=== PATIENT | female | born 1995 | race Caucasian/White ===

== ENCOUNTER 2016-08-13 20:25 | Emergency (ER) ==
[2016-08-13 20:32] VITALS: BP 131/79; TEMP 102.7; BMI 48.2
[2016-08-13] MEDS ORDERED: DUONEB NEB STA (21:00)
--- NOTE | 2016-08-13 21:03 | ED.PDOC ---
General ED Provider: Dr. TC ROACH Chief Complaint: Cough Stated Complaint: Patient states that over the past two days she has had cough conjestion with fever. Cough is productive of thick sputum. Admits to smoking 1/ 2 ppd for 10 years. Time Seen by Physician: 21:01 Mode of Arrival: Walk-In Information Source: Patient, Family Exam Limitations: No limitations Nursing and Triage Documentation Reviewed and Agree: Yes Review of Systems - Review Of Systems Constitutional: Reports: Chills, Fever, Malaise, Weakness, Loss of appetite Eyes: Reports: No symptoms Ears, Nose, Mouth, Throat: Reports: No symptoms Respiratory: Reports: Cough, Short of air Cardiac: Reports: No symptoms GI: Reports: No symptoms : Reports: No symptoms Musculoskeletal: Reports: No symptoms Skin: Reports: No symptoms Neurological: Reports: No symptoms Endocrine: Reports: No symptoms Hematologic/Lymphatic: Reports: No symptoms All Other Systems: Reviewed and Negative Past Medical History - Past Medical History Previously Healthy: Yes Endocrine: Reports: None Cardiovascular: Reports: None Respiratory: Reports: Asthma Hematological: Reports: None Gastrointestinal: Reports: GERD Genitourinary: Reports: None Neuro/Psych: Reports: Anxiety, Depression Musculoskeletal: Reports: None Cancer: Reports: None Last Menstrual Period: NOV. - Surgical History General Surgical History: Reports: Tonsillectomy - Family History Family History: Reports: Unknown - Social History Smoking Status: Current every day smoker, Heavy tobacco smoker Hx Substance Use: No Alcohol Screening: Occasionally - Immunizations Tetanus Shot up to Date: Yes Physical Exam - Physical Exam Appearance: Ill-appearing, Obese Ill-appearing: Moderate Pain Distress: Mild Eyes: YAYO, EOMI, Conjunctiva clear Neck: Supple Respiratory: Wheezes Cardiovascular: Tachycardia Musculoskeletal: Normal strength, ROM intact, No edema, No calf tenderness Skin: Warm Neurological: Sensation intact, Motor intact, Reflexes intact, Cranial nerves intact, Alert, Oriented Psychiatric: Anxious Interpretation - Radiology Interpretation Radiology Interpretation By: ED Physician Radiology Results: Negative Exam Interpreted: CXR Critical Care Note - Critical Care Note Total Time (mins): 0 Course - Course Orders, Labs, Meds: Lab Review 08/13/16 20:55 Influenza A (Rapid) Positive H Influenza B (Rapid) Negative Orders Category Date Time Status NEBULIZER TREATMENT Stat CARDIO 08/13/16 21:00 Completed FLU A & B RAPID TEST [RAPID FLU A/B] Stat LAB 08/13/16 20:55 Completed MOLECULAR GROUP A STREP Stat LAB 08/13/16 20:55 Results STREP SCREEN Stat LAB 08/13/16 20:55 Results Acetaminophen [Tylenol] MEDS 08/13/16 21:11 Discontinued 1,000 mg PO ONCE STA Ipratropium/Albuterol Neb [Duoneb] MEDS 08/13/16 21:00 Discontinued 1 vial NEB ONCE STA Oseltamivir Phosphate [Tamiflu] MEDS 08/13/16 21:30 Ordered 75 mg PO ONCE CHEST, 2 VIEWS PA & LAT Stat RADS 08/13/16 20:59 Taken Medications Generic Name Dose Route Start Last Admin Trade Name Freq PRN Reason Stop Dose Admin Oseltamivir Phosphate 75 mg 08/13/16 21:30 08/13/16 21:46 Tamiflu PO 75 mg ONCE KAMILLE Administration Discontinued Medications Generic Name Dose Route Start Last Admin Trade Name Freq PRN Reason Stop Dose Admin Acetaminophen 1,000 mg 08/13/16 21:11 08/13/16 21:19 Tylenol PO 08/13/16 21:12 1,000 mg ONCE STA Administration Albuterol/Ipratropium 1 vial 08/13/16 21:00 08/13/16 21:13 Duoneb NEB 08/13/16 21:01 1 vial ONCE STA Administration Vital Signs: Temp Pulse Resp BP Pulse Ox 08/13/16 20:27 102.7 F H 112 H 20 131/79 92 L Departure - Departure Time of Disposition: 21:50 Disposition: HOME SELF-CARE Discharge Problem: Influenza A Instructions: Influenza (ED) Condition: Fair Pt referred to PMD for follow-up: Yes Additional Instructions: Alternate Tylenol with Motrin as needed for fever Take Tamiflu for 5 days Push fluids Prescriptions: Oseltamivir Phosphate [Tamiflu] 75 mg PO BID #10 capsule Allergies/Adverse Reactions: Allergies sulfamethoxazole [From Bactrim] Adverse Reaction (Verified 08/13/16 20:36) Nausea trimethoprim [From Bactrim] Adverse Reaction (Verified 08/13/16 20:36) Nausea Home Medications: Ambulatory Orders Oseltamivir Phosphate [Tamiflu] 75 mg PO BID #10 capsule 08/13/16 Disposition Discussed With: Patient, Family
[2016-08-13] MEDS ORDERED: TYLENOL PO STA (21:11)
[2016-08-13 21:14] LABS: FLU INTERNAL QC INTERNAL QC VALID; RAPID FLU A POSITIVE (NEGATIVE); RAPID FLU B NEGATIVE (NEGATIVE)
[2016-08-13] MEDS ORDERED: TAMIFLU PO SCH (21:30)
[2016-08-13] MEDS ORDERED: TAMIFLU ONE (21:43)
--- NOTE | 2016-08-14 07:41 | DI ---
EXAM: Two views of the chest. History: Cough. Findings: Heart size is normal. No focal consolidation. No appreciable pleural fluid and no pneum othorax. No acute osseous abnormalities. Impression: No acute cardiopulmonary process.
== END 2016-08-13 22:00 | disposition home or self-care (01) ==
LOC: ED 20:25
DX: J09.X2 Influenza due to identified novel influenza A virus with other respiratory manifestations (principal); F17.210 Nicotine dependence, cigarettes, uncomplicated
CPT/HCPCS: 87651; 87804; 87880; 94640; 99283

== ENCOUNTER 2016-12-08 18:01 | Emergency (ER) ==
[2016-12-08 18:04] VITALS: BP 147/92; TEMP 98.5; BMI 51.6
--- NOTE | 2016-12-08 18:19 | ED.PDOC ---
General ED Provider: Dr. JEANCARLOS AVILA-ER Chief Complaint: Cough Stated Complaint: my sinuses are draining down into my chest Time Seen by Physician: 18:05 Mode of Arrival: Walk-In Information Source: Patient, Family Exam Limitations: No limitations Nursing and Triage Documentation Reviewed and Agree: Yes Respiratory Complaint Exam - Respiratory Complaint/Exam Onset/Duration: 2 days Symptoms Are: Still present Timing: Constant Initial Severity: Mild Current Severity: Moderate Location: Nose, Chest Character: Reports: Productive cough Aggravating: Reports: URI Alleviating: Reports: None Associated Signs and Symptoms: Reports: URI, Nasal congestion, Sinus discomfort. Denies: Rapid breathing, Dyspnea, Fever, Chills, Chest pain, Pleuritic chest pain, Wheezing, Hemoptysis, Dizziness, Calf pain, Calf swelling , Edema, Hoarseness, Vomiting, Sore throat, Weight loss, Decreased oral intake, Increased thirst, Increased appetite, Increased urination History of Healthcare-Acquired Pneumonia: No Pulmonary Embolism Risk Factors: Smoking Cardiac Risk Factors: Reports: Smoking Pseudomonas Risk Factors: Reports: None Tuberculosis Risk Factors: Reports: None, Smoking Home Oxygen Use: No Recent Stress Test: No Recent Echo/LV Function: No Current Antibiotic Use: No Current Asthma Medication Use: No Respiratory Distress: None Inadequate Respiratory Effort: No Dysphagia Present: No Stridor Present: No JVD Present: No Accessory Muscle Use: No Retractions: Not Present Diminished Breath Sounds: No Sinus Tenderness: None Grunting Respirations: No Kussmaul Respirations: No Differential Diagnoses: Asthma, Sinusitis, URI Review of Systems - Review Of Systems Constitutional: Reports: No symptoms Eyes: Reports: No symptoms Ears, Nose, Mouth, Throat: Reports: Nose discharge Respiratory: Reports: Cough Cardiac: Reports: No symptoms GI: Reports: No symptoms : Reports: No symptoms Musculoskeletal: Reports: No symptoms Skin: Reports: No symptoms Neurological: Reports: No symptoms Endocrine: Reports: No symptoms Hematologic/Lymphatic: Reports: No symptoms All Other Systems: Reviewed and Negative Past Medical History - Past Medical History Previously Healthy: Yes Endocrine: Reports: None Cardiovascular: Reports: None Respiratory: Reports: Asthma Hematological: Reports: None Gastrointestinal: Reports: GERD Genitourinary: Reports: None Neuro/Psych: Reports: Anxiety, Depression Musculoskeletal: Reports: None Cancer: Reports: None Last Menstrual Period: MAY (PCOS) - Surgical History General Surgical History: Reports: Tonsillectomy - Family History Family History: Reports: Unknown - Social History Smoking Status: Current every day smoker, Heavy tobacco smoker Hx Substance Use: Yes Alcohol Screening: None Lives: With family Physical Exam - Physical Exam Appearance: Well-appearing, No pain distress, Well-nourished Eyes: YAYO, EOMI, Conjunctiva clear ENT: Rhinorrhea Neck: Supple Respiratory: Rhonchi, Wheezes Cardiovascular: RRR GI/: Soft, Nontender, No masses, Bowel sounds normal, No Organomegaly Musculoskeletal: Normal strength, ROM intact, No edema, No calf tenderness Skin: Warm, Dry, Normal color Neurological: Sensation intact, Motor intact, Reflexes intact, Cranial nerves intact, Alert, Oriented Psychiatric: Affect appropriate, Mood appropriate Critical Care Note - Critical Care Note Total Time (mins): 0 Course - Course Orders, Labs, Meds: Orders Category Date Time Status URINE Stat LAB 12/08/16 18:14 Uncollected Vital Signs: Temp Pulse Resp BP Pulse Ox 12/08/16 18:01 98.5 F 107 H 20 147/92 H 95 Departure - Departure Time of Disposition: 18:19 Disposition: HOME SELF-CARE Discharge Problem: Sinusitis Qualifiers: Sinusitis location: unspecified location Chronicity: unspecified Qualifier Code : (J32.9) Chronic sinusitis, unspecified Asthmatic bronchitis Qualifiers: Asthma severity: mild intermittent Asthma complication type: uncomplicated Qualifier Code: (J45.20) Mild intermittent asthma, uncomplicated Instructions: Sinusitis (ED) Condition: Good Pt referred to PMD for follow-up: Yes Additional Instructions: biaxin 500mg bid x 10 days--prednisone 30mg x2 days then 20mg x 2 days then 10mg x 2 days---robitussin ac 2 tsps q 6hs prn cough 150cc--stop smoking- Allergies/Adverse Reactions: Allergies sulfamethoxazole [From Bactrim] Adverse Reaction (Verified 12/08/16 18:04) Nausea trimethoprim [From Bactrim] Adverse Reaction (Verified 12/08/16 18:04) Nausea Home Medications: Ambulatory Orders 1 [No Reported Medications] 12/08/16 Disposition Discussed With: Patient, Family
[2016-12-08 18:30] LABS: URINE PREGNANCY INTERNAL QC INTERNAL QC VALID
== END 2016-12-08 18:34 | disposition home or self-care (01) ==
LOC: ED 18:01
DX: J32.9 Chronic sinusitis, unspecified (principal); J45.20 Mild intermittent asthma, uncomplicated; F17.200 Nicotine dependence, unspecified, uncomplicated
CPT/HCPCS: 81025; 99283

== ENCOUNTER 2017-02-23 17:08 | Emergency (ER) ==
[2017-02-23 17:16] VITALS: BP 131/84; TEMP 98.8; BMI 52.2
[2017-02-23 18:24] LABS: BASOPHILS # (AUTO) 0.1 K/uL (0-0.2); BASOPHILS % (AUTO) 0.4 % (0.0-3.0); EOSINOPHILS # (AUTO) 0.2 K/ul (0.0-0.7); EOSINOPHILS % (AUTO) 1.6 % (0.0-7.0); HEMATOCRIT 39.7 % (37.0-47.0); HEMOGLOBIN 13.5 g/dl (12.0-16.0); IMMATURE GRANULOCYTE % (AUTO) 0.2 % (0.0-5.0); LYMPHOCYTES # (AUTO) 3.4 K/uL (0.60-3.4); LYMPHOCYTES % (AUTO) 26.2 (10.0-50.0); MEAN CORPUSCULAR HEMOGLOBIN 29.8 pg (27.0-31.0); MEAN CORPUSCULAR VOLUME 87.6 fl (81.0-99.0); MONOCYTES # (AUTO) 0.6 K/uL (0.4-2.0); MONOCYTES % (AUTO) 4.7 (0-10); NEUTROPHILS # (AUTO) 8.6 K/ul (2.0-6.9); NEUTROPHILS % (AUTO) 66.9; PLATELET COUNT 281 10^3/uL (140-440); RED BLOOD COUNT 4.53 10^6/ul (4.20-5.40); WHITE BLOOD COUNT 12.88 K/ul (4.6-10.2)
--- NOTE | 2017-02-23 18:36 | ED.PDOC ---
General ED Provider: Dr. DALY BARRAGAN Chief Complaint: Diarrhea Stated Complaint: DIARRHEA , GENERALIZED BODY ACHES ABDOMINAL PAIN Time Seen by Physician: 17:10 (seen with Zen ( blind lacer) at all times) Mode of Arrival: Walk-In Information Source: Patient, Family Exam Limitations: No limitations Nursing and Triage Documentation Reviewed and Agree: Yes GI Complaint Exam - Abdominal Pain Complaint/Exam Onset: Gradual Duration: 3 DAYS Symptoms Are: Still present Timing: Constant Initial Severity: Moderate Current Severity: Moderate Location of Pain: Diffuse Character: Reports: Aching Aggravating: Reports: None Alleviating: Reports: None Associated Signs and Symptoms: Denies: Diaphoresis, Fever, Cough, Chest pain, Dizziness, Back pain, Constipation, Blood in stool, Dysuria, Urinary frequency, Decreased urine output, Decreased appetite, Vaginal bleeding, Vaginal discharge , Nausea, Vomiting, Diarrhea, Sore throat, Decreased activity Related History: Reports: Similar episode AAA Risk Factors: Reports: None Cardiac Risk Factors: Reports: None Ectopic Risk Factors: Reports: None Ovarian Torsion Risk Factors: Reports: None Surgical Obstruction Risk Factors: Reports: None Related Surgical History: Reports: None Patient Rh Status: Unknown Abdominal Findings: Present: None Review of Systems - Review Of Systems Constitutional: Reports: No symptoms Eyes: Reports: No symptoms Ears, Nose, Mouth, Throat: Reports: No symptoms Respiratory: Reports: No symptoms Cardiac: Reports: No symptoms GI: Reports: Abdominal pain : Reports: No symptoms Musculoskeletal: Reports: No symptoms Skin: Reports: No symptoms Neurological: Reports: No symptoms Endocrine: Reports: No symptoms Hematologic/Lymphatic: Reports: No symptoms All Other Systems: Reviewed and Negative Past Medical History - Past Medical History Previously Healthy: Yes Endocrine: Reports: None Cardiovascular: Reports: None Respiratory: Reports: Asthma Hematological: Reports: None Gastrointestinal: Reports: GERD Genitourinary: Reports: None Neuro/Psych: Reports: Anxiety, Depression Musculoskeletal: Reports: None Cancer: Reports: None Last Menstrual Period: LAST MAY, 1916 - Surgical History General Surgical History: Reports: Tonsillectomy - Family History Family History: Reports: Unknown - Social History Smoking Status: Current every day smoker, Heavy tobacco smoker Hx Substance Use: No Alcohol Screening: None - Immunizations Tetanus Shot up to Date: Yes Physical Exam - Physical Exam Appearance: Well-appearing, No pain distress, Well-nourished Eyes: YAYO, EOMI, Conjunctiva clear ENT: Ears normal, Nose normal, Oropharynx normal Respiratory: Airway patent, Breath sounds clear, Breath sounds equal, Respirations nonlabored Cardiovascular: RRR, Pulses normal, No rub, No murmur GI/: Soft, Nontender, No masses, Bowel sounds normal, No Organomegaly Musculoskeletal: Normal strength, ROM intact, No edema, No calf tenderness Skin: Warm, Dry, Normal color Neurological: Sensation intact, Motor intact, Reflexes intact, Cranial nerves intact, Alert, Oriented Psychiatric: Affect appropriate, Mood appropriate Physician Notification - Case Discussed Physician Notified: MARLEY Time of Notification: 19:00 Critical Care Note - Critical Care Note Total Time (mins): 0 Course - Course Hematology/Chemistry: 02/23/17 18:20 02/23/17 18:20 Orders, Labs, Meds: Lab Review 02/23/17 18:20 WBC 12.88 H RBC 4.53 Hgb 13.5 Hct 39.7 MCV 87.6 MCH 29.8 MCHC 34.0 RDW Coeff of Yarelis 13.4 Plt Count 281 Immature Gran % (Auto) 0.2 Neut % (Auto) 66.9 Lymph % (Auto) 26.2 [place] % (Auto) 4.7 Eos % (Auto) 1.6 Baso % (Auto) 0.4 Immature Gran # (Auto) 0.0 Neut # 8.6 H Lymph # 3.4 [place] # 0.6 Eos # 0.2 Baso # 0.1 Sodium 141 Potassium 4.0 Chloride 106 Carbon Dioxide 26 Anion Gap 13.0 BUN 9 Creatinine 0.75 Estimated GFR (MDRD) 96.00 BUN/Creatinine Ratio 12.00 Glucose 94 Calcium 8.9 Total Bilirubin 0.40 AST 13 L ALT 19 Alkaline Phosphatase 118 H Total Protein 7.1 Albumin 3.6 Globulin 3.5 Albumin/Globulin Ratio 1.03 Serum , Qual Negative Orders Category Date Time Status CBC W/ AUTO DIFF Stat LAB 02/23/17 18:20 Completed COMPREHENSIVE METABOLIC PANEL Stat LAB 02/23/17 18:20 Completed EHRLICHIA DNA, PCR Stat LAB 02/23/17 18:20 Received LYME, WESTERN BLOT, SERUM Stat LAB 02/23/17 18:20 Received SERUM Stat LAB 02/23/17 18:20 Completed STREP SCREEN Stat LAB 02/23/17 18:40 Received URINALYSIS C & S IF INDICATED Stat LAB 02/23/17 18:40 Received CHEST, 2 VIEWS PA & LAT Stat RADS 02/23/17 18:[address] ABDOMEN/PELVIS WO CONTRAST Stat RADS 02/23/17 18:11 Ordered Vital Signs: Temp Pulse Resp BP Pulse Ox 02/23/17 17:08 98.8 F 99 H 20 131/84 94 L Departure - Departure Time of Disposition: 18:38 Disposition: HOME SELF-CARE Discharge Problem: Diarrhea Instructions: Abdominal Pain (ED), Abdominal Pain in Children (ED) Condition: Good Pt referred to PMD for follow-up: Yes Additional Instructions: Please call your Family Physician as soon as possible to schedule a follow-up appointment. Allergies/Adverse Reactions: Allergies sulfamethoxazole [From Bactrim] Adverse Reaction (Verified 12/08/16 18:04) Nausea trimethoprim [From Bactrim] Adverse Reaction (Verified 12/08/16 18:04) Nausea Home Medications: Ambulatory Orders 1 [No Reported Medications] 12/08/16
[2017-02-23 18:42] LABS: SERUM PREGNANCY INTERNAL QC INTERNAL QC VALID
[2017-02-23 18:43] LABS: ALBUMIN 3.6 g/dL (3.4-5.0); ALBUMIN/GLOBULIN RATIO 1.03; BILIRUBIN,TOTAL 0.4 mg/dL (0.00-1.20); CALCIUM 8.9 mg/dL (8.2-10.2); CREATININE 0.75 mg/dL (0.60-1.30); TOTAL PROTEIN 7.1 g/dL (6.4-8.2)
[2017-02-23 18:55] LABS: BILIRUBIN,URINE Negative (NEGATIVE); KETONES,URINE Negative (NEGATIVE); LEUKOCYTE ESTERASE ,URINE Negative (NEGATIVE); NITRITE,URINE Negative (NEGATIVE); PH,URINE 6.5 (5-9); PROTEIN,URINE Negative (NEGATIVE); URINE, BLOOD Negative (NEGATIVE)
[2017-02-23 18:57] LABS: ADD URINE MICROSCOPIC YES
[2017-02-23 18:59] LABS: BACTERIA,URINE 1+ (NOT PRESENT)
--- NOTE | 2017-02-23 19:15 | CT ---
EXAM: CT abdomen and pelvis without contrast HISTORY: Abdominal pain for 1 week, fever 104, diarrhea, shortness of breath, headache, nausea TECHNIQUE: Multi-slice transaxial helical with coronal and sagittal reformed images COMPARISON: CT abdomen/pelvis from 05/31/2012 FINDINGS: The lung bases are free of acute airspace or interstitial opacities. The heart size is no rmal. There are no pericardial or pleural effusions. There is a chronic stable nodule in the right l ower lobe measuring 3.8 mm that can be considered benign. The hepatic attenuation is normal relative to the spleen. The gallbladder is present without biliar y dilatation. The pancreas adrenal glands are normal. The spleen has normal size and attenuation. The kidneys ureters are normal. The nonopacified bladder is empty. The uterus and adnexa are norm al. The appendix is normal. No intestinal distension is evident. The aorta is normal caliber. No lymphadenopathy or ascites. The bones are free of suspicious osteolytic or osteoblastic lesions. IMPRESSION: 1. Normal appendix. Nonobstructive intestinal gas pattern. 2. No lymphadenopathy or ascites. 3. Normal renal collecting systems.
--- NOTE | 2017-02-23 19:17 | DI ---
EXAM: CHEST FRONTAL AND LATERAL VIEWS HISTORY: Cough. COMPARISON: 08/13/2016 FINDINGS: Heart size and mediastinal contour remain within normal limits. No acute infiltrates. Normal vascularity with no pleural fluid or pneumothorax. The bony thorax has no acute finding. IMPRESSION: No acute process.
== END 2017-02-23 19:05 | disposition home or self-care (01) ==
LOC: ED 17:08
DX: R19.7 Diarrhea, unspecified (principal); R10.84 Generalized abdominal pain; R52 Pain, unspecified; F17.210 Nicotine dependence, cigarettes, uncomplicated
CPT/HCPCS: 36415; 80053; 81001; 84703; 85025; 86617; 87086; 87651; 87798; 87880; 99283

== ENCOUNTER 2017-09-15 16:31 | Outpatient (CLI) ==
[2012-12-23 06:33] VITALS: TEMP 97.5
[2017-05-16 03:31] VITALS: BMI 50.6
== END 2017-09-15 16:32 | disposition home or self-care (01) ==
LOC: FCC-LAB 16:31
PROVIDERS: ATTEND Nurse Practitioner Family
DX: R63.5 Abnormal weight gain (principal); E75.6 Lipid storage disorder, unspecified
CPT/HCPCS: 36415; 80053; 80061; 84439; 84443; 85025

== ENCOUNTER 2017-09-23 10:00 | Outpatient (CLI) ==
[2012-12-23 06:33] VITALS: TEMP 97.5
[2017-09-23 19:46] VITALS: BMI 55.7
== END 2017-09-23 10:01 | disposition left against medical advice (07) ==
LOC: AMBL 10:00
PROVIDERS: ATTEND Internal Medicine
DX: Z04.1 Encounter for examination and observation following transport accident (principal); V89.2XXA Person injured in unspecified motor-vehicle accident, traffic, initial encounter

== ENCOUNTER 2017-09-23 19:23 | Emergency (ER) ==
[2017-09-23 19:46] VITALS: BP 148/92; TEMP 98.5; BMI 55.7
[2017-09-23] MEDS: ZOFRAN 4 MG/2 ML IM STA (20:57)
[2017-09-23] MEDS: MORPHINE 2 MG/ML SYRINGE IM STA (20:58)
[2017-09-23] MEDS: TORADOL IM STA (20:58)
--- NOTE | 2017-09-23 21:01 | ED.PDOC ---
General ED Provider: Dr. JEANCARLOS AVILA-ER Chief Complaint: Vaginal Bleeding Stated Complaint: ambrose been bleeding heavy for 2 weeks--this is the 3 rd time this has happened Time Seen by Physician: 19:45 Information Source: Patient Exam Limitations: No limitations Primary Care Provider: SENTHIL YEAGER Nursing and Triage Documentation Reviewed and Agree: Yes Reviewed sepsis parameters & appropriate labs ordered?: Yes System Inflammatory Response Syndrome: Not Applicable Sepsis Protocol: For patient's 13 years and over: Temp is 96.8 and below OR 101 and greater Pulse >90 BPM Resp >20/minute Acutely Altered Mental Status Are patient's symptoms suggestive of a new infection, such as: -Pneumonia -Skin, Soft Tissue -Endocarditis -UTI -Bone, Joint Infection -Implantable Device -Acute Abdominal Infection -Wound Infection -Meningitis -Blood Stream Catheter Infection -Unknown 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 Denies: Dizziness, Lightheadedness, Pale, UTI symptoms, Generalized pain Related History: Reports: Similar episode : 0 Para: 0 Spontaneous AB Risk Factors: Reports: None Patient Rh Status: Unknown Abdominal Findings: Present: None Differential Diagnoses: DUB Review of Systems - Review Of Systems Constitutional: Reports: No symptoms Eyes: Reports: No symptoms Ears, Nose, Mouth, Throat: Reports: No symptoms Respiratory: Reports: No symptoms Cardiac: Reports: No symptoms GI: Reports: No symptoms : Reports: No symptoms Musculoskeletal: Reports: No symptoms Skin: Reports: No symptoms Neurological: Reports: No symptoms Endocrine: Reports: No symptoms Hematologic/Lymphatic: Reports: No symptoms All Other Systems: Reviewed and Negative Past Medical History - Past Medical History Previously Healthy: Yes Endocrine: Reports: None Cardiovascular: Reports: None Respiratory: Reports: Asthma Hematological: Reports: None Gastrointestinal: Reports: GERD Genitourinary: Reports: None Neuro/Psych: Reports: Anxiety, Depression Musculoskeletal: Reports: None Cancer: Reports: None Last Menstrual Period: 09/10/2017 - Surgical History General Surgical History: Reports: Tonsillectomy - Family History Family History: Reports: Unknown - Social History Smoking Status: Current every day smoker, Heavy tobacco smoker Hx Substance Use: No Alcohol Screening: Occasionally - Immunizations Tetanus Shot up to Date: Yes Physical Exam - Physical Exam Appearance: Well-appearing, No pain distress, Well-nourished Pain Distress: Mild Eyes: YAYO, EOMI, Conjunctiva clear ENT: Ears normal, Nose normal, Oropharynx normal Neck: Supple Respiratory: Airway patent, Breath sounds clear, Breath sounds equal, Respirations nonlabored Cardiovascular: RRR, Pulses normal, No rub, No murmur GI/: Soft, Nontender, No masses, Bowel sounds normal, No Organomegaly Musculoskeletal: Normal strength Skin: Warm, Dry, Normal color Neurological: Sensation intact, Motor intact, Reflexes intact, Cranial nerves intact, Alert, Oriented Psychiatric: Affect appropriate, Mood appropriate, Anxious Critical Care Note - Critical Care Note Total Time (mins): 0 Course - Course Hematology/Chemistry: 09/23/17 20:10 09/23/17 20:10 Orders, Labs, Meds: Lab Review 09/23/17 09/23/17 09/23/17 20:10 20:10 20:10 WBC 17.27 H RBC 4.34 Hgb 13.0 Hct 39.9 MCV 91.9 MCH 30.0 MCHC 32.6 RDW Coeff of Yarelis 13.8 Plt Count 288 Immature Gran % (Auto) 0.3 Neut % (Auto) 65.7 Lymph % (Auto) 28.5 [place] % (Auto) 4.5 Eos % (Auto) 0.6 Baso % (Auto) 0.4 Immature Gran # (Auto) 0.1 Neut # (Auto) 11.3 H Lymph # (Auto) 4.9 H [place] # (Auto) 0.8 Eos # (Auto) 0.1 Baso # (Auto) 0.1 Sodium 140 Potassium 3.7 Chloride 110 H Carbon Dioxide 19 L Anion Gap 14.7 BUN 12 Creatinine 0.75 Estimated GFR (MDRD) 95.00 BUN/Creatinine Ratio 16.00 Glucose 145 H Calcium 9.1 Total Bilirubin 0.2 AST 7 L ALT 10 L Alkaline Phosphatase 72 Total Protein 7.3 Albumin 3.2 L Globulin 4.1 Albumin/Globulin Ratio 0.78 Serum , Qual Negative Orders Category Date Time Status CBC W/ AUTO DIFF Stat LAB 09/23/17 20:10 Completed COMPREHENSIVE METABOLIC PANEL Stat LAB 09/23/17 20:10 Completed SERUM Stat LAB 09/23/17 20:10 Completed Ketorolac Tromethamine [Toradol] MEDS 09/23/17 20:50 Discontinued 60 mg IM ONCE STA Morphine Sulfate [Morphine 2 mg/ml Syringe] MEDS 09/23/17 20:50 Discontinued 2 mg IM ONCE STA Ondansetron HCl/Pf [Zofran 4 mg/2 ml] MEDS 09/23/17 20:50 Discontinued 4 mg IM ONCE STA Medications Discontinued Medications Generic Name Dose Route Start Last Admin Trade Name Reji HUERTAS Reason Stop Dose Admin Ketorolac Tromethamine 60 mg 09/23/17 20:50 09/23/17 20:58 Toradol IM 09/23/17 20:51 60 mg ONCE STA Administration Morphine Sulfate 2 mg 09/23/17 20:50 09/23/17 20:58 Morphine 2 Mg/Ml Syringe IM 09/23/17 20:51 2 mg ONCE STA Administration Ondansetron HCl 4 mg 09/23/17 20:50 09/23/17 20:57 Zofran 4 Mg/2 Ml IM 09/23/17 20:51 4 mg ONCE STA Administration Vital Signs: Temp Pulse Resp BP Pulse Ox 09/23/17 19:27 98.5 F 95 H 18 148/92 H 99 Departure - Departure Time of Disposition: 21:20 Disposition: HOME SELF-CARE Discharge Problem: Bleeding from vagina Instructions: Dysfunctional Uterine Bleeding (ED) Condition: Good Pt referred to PMD for follow-up: Yes IPMP verified?: No Additional Instructions: keep appt with dr zavala tomorrow at 8am Allergies/Adverse Reactions: Allergies sulfamethoxazole [From Bactrim] Adverse Reaction (Verified 05/16/17 03:29) Nausea trimethoprim [From Bactrim] Adverse Reaction (Verified 05/16/17 03:29) Nausea Home Medications: Ambulatory Orders Norgestimate-Ethinyl Estradiol [Mononessa 28 Tablet] 1 each PO DAILY 09/15/17 Disposition Discussed With: Patient, Family
== END 2017-09-23 21:38 | disposition home or self-care (01) ==
LOC: ED 19:23
DX: N93.8 Other specified abnormal uterine and vaginal bleeding (principal); F17.210 Nicotine dependence, cigarettes, uncomplicated
CPT/HCPCS: 36415; 80053; 84703; 85025; 96372; 99283

== ENCOUNTER 2017-10-24 09:35 | Emergency (ER) ==
[2017-10-24 09:41] VITALS: BP 156/102; TEMP 98.5; BMI 55.0
--- NOTE | 2017-10-24 10:14 | ED.PDOC ---
General ED Provider: Dr. TC ROACH Chief Complaint: Tooth Problem Stated Complaint: Patient is a 22 year old female who states she has had right lower molar pain that has had for 3 weeks. she went to see her PCP and was placed on Ibuprufen and clindamycin which she has taken for 2 days. She thinks it is not working. Had taken some old amoxil for afew days before starting clindamycin. Time Seen by Physician: 10:00 Mode of Arrival: Walk-In Information Source: Patient Exam Limitations: No limitations Primary Care Provider: SENTHIL YEAGER Nursing and Triage Documentation Reviewed and Agree: Yes Reviewed sepsis parameters & appropriate labs ordered?: No System Inflammatory Response Syndrome: Not Applicable Sepsis Protocol: For patient's 13 years and over: Temp is 96.8 and below OR 101 and greater Pulse >90 BPM Resp >20/minute Acutely Altered Mental Status Are patient's symptoms suggestive of a new infection, such as: -Pneumonia -Skin, Soft Tissue -Endocarditis -UTI -Bone, Joint Infection -Implantable Device -Acute Abdominal Infection -Wound Infection -Meningitis -Blood Stream Catheter Infection -Unknown System Inflammatory Response Syndrome: Not Applicable EENT Complaint Exam - Dental/Oral Complaint/Exam Mechanism of Injury: No known trauma Onset/Duration: 3 weeks Symptoms Are: Still present Timing: Constant Initial Severity: Moderate Current Severity: Severe Location: right lower molar Character: Reports: Aching, Throbbing Aggravating: Reports: Heat, Cold Alleviating: Reports: None Associated Signs and Symptoms: Reports: Swelling, Foul taste in mouth Cardiac Risk Factors: Reports: None Dental/Oral Surgical History: Reports: None Tooth Findings: Present: Gross decay, Abcess Facial Swelling Present: No Bleeding Present: No Oropharynx Findings: Absent: Clots, Active bleeding Septal Hematoma: No Foreign Body Present: No Dysphagia Present: No Drooling Present: No Asymmetrical Tonsillar Swelling Present: No Uvula Midline: No Bhargavi-tonsillar Fluctuence: No Trismus Present: No Palatal Petechiae Present: No Scarlatinaform Rash Present: No Differential Diagnoses: Dental Abcess, Dental Caries Review of Systems - Review Of Systems Constitutional: Reports: No symptoms Ears, Nose, Mouth, Throat: Reports: Mouth pain All Other Systems: Reviewed and Negative Past Medical History - Past Medical History Previously Healthy: Yes Endocrine: Reports: None Cardiovascular: Reports: None Respiratory: Reports: Asthma Hematological: Reports: None Gastrointestinal: Reports: GERD Genitourinary: Reports: None Neuro/Psych: Reports: Anxiety, Depression Musculoskeletal: Reports: None Cancer: Reports: None Last Menstrual Period: september 11 - Surgical History General Surgical History: Reports: Tonsillectomy - Family History Family History: Reports: Unknown - Social History Smoking Status: Current every day smoker, Heavy tobacco smoker Hx Substance Use: No Alcohol Screening: Occasionally Physical Exam - Physical Exam Appearance: Ill-appearing, Well-nourished Ill-appearing: Mild Pain Distress: Moderate Eyes: YAYO, EOMI, Conjunctiva clear ENT: Ears normal, Nose normal Neck: Supple Respiratory: Airway patent, Breath sounds clear, Breath sounds equal, Respirations nonlabored Cardiovascular: RRR, Pulses normal, No rub, No murmur GI/: Soft, Nontender, No masses, Bowel sounds normal, No Organomegaly Musculoskeletal: Normal strength, ROM intact, No edema, No calf tenderness Skin: Warm, Dry, Normal color Neurological: Sensation intact, Motor intact, Reflexes intact, Cranial nerves intact, Alert, Oriented Psychiatric: Affect appropriate, Mood appropriate, Anxious Critical Care Note - Critical Care Note Total Time (mins): 0 Course - Course Vital Signs: Temp Pulse Resp BP Pulse Ox 10/24/17 09:36 98.5 F 80 20 156/102 H 95 Departure - Departure Time of Disposition: 10:13 Disposition: HOME SELF-CARE Discharge Problem: Dental abscess Instructions: Dental Abscess (ED) Condition: Stable Pt referred to PMD for follow-up: Yes IPMP verified?: No Additional Instructions: continue current home medications. take Ultram as needed for severe pain Follow up with an oral surgeon soon Prescriptions: Tramadol HCl [Ultram] 50 mg PO Q6H PRN #20 tablet PRN Reason: Severe Pain Allergies/Adverse Reactions: Allergies sulfamethoxazole [From Bactrim] Adverse Reaction (Verified 10/24/17 09:43) Nausea trimethoprim [From Bactrim] Adverse Reaction (Verified 10/24/17 09:43) Nausea Home Medications: Ambulatory Orders Tramadol HCl [Ultram] 50 mg PO Q6H PRN #20 tablet 10/24/17 Disposition Discussed With: Patient
== END 2017-10-24 10:30 | disposition home or self-care (01) ==
LOC: ED 09:35
DX: K04.7 Periapical abscess without sinus (principal); K02.7 Dental root caries; F17.210 Nicotine dependence, cigarettes, uncomplicated
CPT/HCPCS: 99282

== ENCOUNTER 2018-04-23 17:52 | Emergency (ER) ==
[2018-04-23] MEDS ORDERED: DUONEB NEB STA (17:56)
[2018-04-23] MEDS ORDERED: SOLU-MEDROL 125 MG 250 MG in SODIUM CHLORIDE 50 ML IV ONE (17:56)
[2018-04-23 17:59] VITALS: BP 122/80; TEMP 97.7; BMI 55.5
--- NOTE | 2018-04-23 18:00 | ED.PDOC ---
General ED Provider: Dr. DALY BARRAGAN Chief Complaint: Respiratory Complaint Stated Complaint: 22 yrs old female acutely short of breath has history of asthma and smokes 1/2 pk day Time Seen by Physician: 17:59 (sen with obdulia leon RN AT ALL TIMES ADMITTS TO SMOKING 1/2 PK DAY ON ALBUTEROL) Information Source: Patient, Family Exam Limitations: No limitations Primary Care Provider: SENTHIL YEAGER Nursing and Triage Documentation Reviewed and Agree: Yes Does patient meet sepsis criteria?: No System Inflammatory Response Syndrome: Not Applicable Sepsis Protocol: For patient's 13 years and over: Temp is 96.8 and below OR 101 and greater Pulse >90 BPM Resp >20/minute Acutely Altered Mental Status Are patient's symptoms suggestive of a new infection, such as: -Pneumonia -Skin, Soft Tissue -Endocarditis -UTI -Bone, Joint Infection -Implantable Device -Acute Abdominal Infection -Wound Infection -Meningitis -Blood Stream Catheter Infection -Unknown Respiratory Complaint Exam - Asthma Complaint/Exam Onset/Duration: JUST P.T.A Symptoms Are: Still present Timing: Intermittent Initial Severity: Moderate Current Severity: Moderate Character: Reports: Wheezing, Non-productive cough Aggravating: Reports: Weather change, URI (SMOKER ) Alleviating: Reports: Inhalers Associated Signs and Symptoms: Denies: Fever, SOA, Chest pain, Edema, Calf pain , URI, Sinus infection, Rapid breathing, Labored breathing Related Surgical History: Reports: None Status Asthmaticus Risk Factors: Reports: None Current Asthma Medication Usage: Yes (ALBUTERL MDI) Recent Antibiotics: No Respiratory Distress: Mild Accessory Muscle Use: No Retractions: Not Present Diminished Breath Sounds: Yes Prolonged Expiratory Phase: No Unable to Speak Full Sentences: No Fatigue Present: No Differential Diagnoses: Acute Asthma, Bronchitis, Pneumonia Quality Indicators For Pneumonia/CAP: Antibiotics in 6hr-admit, SpO2 assessed, Vital signs, Mental status assessed Patient Advised to Stop Smoking: Yes (STRONGLY ADVISED HER MAY PRESENT AT ALL TIMES ) Review of Systems - Review Of Systems Constitutional: Reports: No symptoms Eyes: Reports: No symptoms Ears, Nose, Mouth, Throat: Reports: No symptoms Respiratory: Reports: Cough, Wheezing (DID NOT TAKE ZRTTEC TODAY) Cardiac: Reports: No symptoms GI: Reports: No symptoms : Reports: No symptoms Musculoskeletal: Reports: No symptoms Skin: Reports: No symptoms Neurological: Reports: No symptoms Endocrine: Reports: No symptoms Hematologic/Lymphatic: Reports: No symptoms All Other Systems: Reviewed and Negative Past Medical History - Past Medical History Previously Healthy: Yes Endocrine: Reports: None Cardiovascular: Reports: None Respiratory: Reports: Asthma Hematological: Reports: None Gastrointestinal: Reports: GERD Genitourinary: Reports: None Neuro/Psych: Reports: Anxiety, Depression Musculoskeletal: Reports: None Cancer: Reports: None - Surgical History General Surgical History: Reports: Tonsillectomy - Family History Family History: Reports: Unknown - Social History Smoking Status: Current every day smoker, Heavy tobacco smoker Hx Substance Use: No Alcohol Screening: Occasionally Physical Exam - Physical Exam Appearance: Well-appearing, No pain distress, Well-nourished Eyes: YAYO, EOMI, Conjunctiva clear ENT: Ears normal, Nose normal, Oropharynx normal Respiratory: Breath sounds diminished, Wheezes Cardiovascular: RRR, Pulses normal, No rub, No murmur GI/: Soft, Nontender, No masses, Bowel sounds normal, No Organomegaly Musculoskeletal: Normal strength, ROM intact, No edema, No calf tenderness Skin: Warm, Dry, Normal color Neurological: Sensation intact, Motor intact, Reflexes intact, Cranial nerves intact, Alert, Oriented Psychiatric: Affect appropriate, Mood appropriate Physician Notification - Case Discussed Physician Notified: MARGARITA Time of Notification: 19:00 Critical Care Note - Critical Care Note Total Time (mins): 0 Course - Course Orders, Labs, Meds: Orders Category Date Time Status ABG DRAW REQUEST Stat CARDIO 04/23/18 17:57 Ordered NEBULIZER TREATMENT Stat CARDIO 04/23/18 17:56 Ordered ABG Stat LAB 04/23/18 17:57 Ordered CBC W/ AUTO DIFF Stat LAB 04/23/18 18:07 Received COMPREHENSIVE METABOLIC PANEL Stat LAB 04/23/18 18:07 Received SERUM Stat LAB 04/23/18 18:07 Received Azithromycin [Zithromax] MEDS 04/23/18 18:04 Discontinued 1,000 mg PO ONCE STA Dexamethasone 4 mg/ml Inj [Decadron 4 mg/ml Sdv] MEDS 04/23/18 18:04 Discontinued 10 mg IM ONCE STA Hydrocodone/Chlorphen Polis [Tussionex] MEDS 04/23/18 18:05 Discontinued 5 ml PO ONCE STA Ipratropium/Albuterol Neb [Duoneb] MEDS 04/23/18 17:56 Discontinued 1 vial NEB ONCE STA CT CHEST W/O CONTRAST Stat RADS 04/23/18 17:56 Ordered Medications Discontinued Medications Generic Name Dose Route Start Last Admin Trade Name Reji PRN Reason Stop Dose Admin Albuterol/Ipratropium 1 vial 04/23/18 17:56 Duoneb NEB 04/23/18 17:57 ONCE STA Azithromycin 1,000 mg 04/23/18 18:04 Zithromax PO 04/23/18 18:05 ONCE STA Chlorphenir/Hydrocodone Polistirex 5 ml 04/23/18 18:05 Tussionex PO 04/23/18 18:06 ONCE STA Dexamethasone Sodium Phosphate 10 mg 04/23/18 18:04 Decadron 4 Mg/Ml Sdv IM 04/23/18 18:05 ONCE STA Vital Signs: Temp Pulse Resp BP Pulse Ox 04/23/18 17:53 97.7 F 90 20 122/80 96 Departure - Departure Time of Disposition: 20:00 Disposition: HOME SELF-CARE Discharge Problem: Acute asthma flare Qualifiers: Asthma severity: mild Asthma persistence: intermittent Qualified Code(s): J45.21 - Mild intermittent asthma with (acute) exacerbation Instructions: Asthma (ED), How to Stop Smoking (ED) Condition: Good Pt referred to PMD for follow-up: Yes IPMP verified?: No Additional Instructions: Please call your Family Physician as soon as possible to schedule a follow-up appointment. Allergies/Adverse Reactions: Allergies sulfamethoxazole [From Bactrim] Adverse Reaction (Verified 04/23/18 18:01) Nausea trimethoprim [From Bactrim] Adverse Reaction (Verified 04/23/18 18:01) Nausea Home Medications: Ambulatory Orders Cetirizine HCl [Zyrtec] 10 mg PO DAILY 04/23/18 Disposition Discussed With: Patient, Family
[2018-04-23] MEDS ORDERED: ZITHROMAX PO STA (18:04)
[2018-04-23] MEDS ORDERED: DECADRON 4 MG/ML SDV IM STA (18:04)
[2018-04-23] MEDS ORDERED: TUSSIONEX PO STA (18:05)
[2018-04-23] MEDS ORDERED: ROCEPHIN IM STA (18:16)
[2018-04-23] MEDS ORDERED: LIDOCAINE HCL 1% SDV IM STA (18:16)
--- NOTE | 2018-04-23 18:57 | CT ---
EXAM: CT chest without contrast HISTORY: Asthma, shortness of air, cough COMPARISON: None TECHNIQUE: CT chest without intravenous contrast. Coronal and sagittal reformatted images obtained. FINDINGS: Thoracic inlet unremarkable. Heart normal in size. Trace pericardial fluid anteriorly. Aorta normal in caliber. Evaluation for lymphadenopathy limited without contrast. No lymphadenopath y identified. Visualized portion upper abdomen demonstrates no acute abnormality. No acute abnormal ities of the bones. Central airway patent. No airspace consolidation. Stable micronodule right lung base are unchanged from 2012, consistent with benign etiology. No pleural effusion or pneumothorax. IMPRESSION: 1. No pneumonia. 2. Trace pericardial fluid anteriorly.
== END 2018-04-23 19:12 | disposition home or self-care (01) ==
LOC: ED 17:52
DX: J45.21 Mild intermittent asthma with (acute) exacerbation (principal); R06.02 Shortness of breath; F17.210 Nicotine dependence, cigarettes, uncomplicated
CPT/HCPCS: 36415; 80053; 84703; 85008; 85025; 94640; 96372; 99283

== ENCOUNTER 2018-12-26 23:36 | Emergency (ER) ==
[2018-12-26 23:44] VITALS: BP 152/82; TEMP 99.4; BMI 58.1
--- NOTE | 2018-12-27 00:53 | CT ---
EXAM: CT brain without contrast HISTORY: Head injury TECHNIQUE: CT of the brain without intravenous contrast FINDINGS: There is no acute hemorrhage midline shift or mass effect. No hydrocephalus or abnormal e xtra-axial fluid collection. No significant parenchymal attenuation abnormality. The bony cranium a ppears normal. Left maxillary sinus retention cyst. Partial opacification of ethmoid sinuses. Soft tissues without significant abnormality. IMPRESSION: 1. No intracranial abnormality.
--- NOTE | 2018-12-27 00:56 | ED.PDOC ---
General ED Provider: Dr. JEANCARLOS AVILA-ER Chief Complaint: Neck Injury Stated Complaint: i was going down a pool slide aNd my neck hurts Time Seen by Physician: 23:40 Mode of Arrival: Walk-In Information Source: Patient Exam Limitations: No limitations Primary Care Provider: ROLF PASCAL Nursing and Triage Documentation Reviewed and Agree: Yes Does patient meet sepsis criteria?: No System Inflammatory Response Syndrome: Not Applicable Sepsis Protocol: For patient's 13 years and over: Temp is 96.8 and below OR 101 and greater Pulse >90 BPM Resp >20/minute Acutely Altered Mental Status Are patient's symptoms suggestive of a new infection, such as: -Pneumonia -Skin, Soft Tissue -Endocarditis -UTI -Bone, Joint Infection -Implantable Device -Acute Abdominal Infection -Wound Infection -Meningitis -Blood Stream Catheter Infection -Unknown Musculoskeletal Complaint Exam - Neck Pain Complaint/Exam Mechanism of Injury: Reports: Trauma Onset/Duration: 6 hrs Symptoms Are: Still present Timing: Constant Initial Severity: Mild Current Severity: Mild Location: Reports: Discrete Character: Reports: Dull, Aching, Spasmodic Alleviating: Reports: None Associated Signs and Symptoms: Denies: Swelling, Redness, Bruising, Fever, Nuchal rigidity, Weakness, Headache, Paresthesia Carotid Bruit Present: No Pain on Passive Flexion: No Positive Kernig's Sign: No ROM Limited In: Present: Flexion, Extension Pain Located at: posteror neck Tenderness: Present: Paraspinal Focal Weakness: Present: None Focal Sensory Loss: Reports: None Differential Diagnoses: Sprain, Strain Review of Systems - Review Of Systems Constitutional: Reports: No symptoms Eyes: Reports: No symptoms Ears, Nose, Mouth, Throat: Reports: No symptoms Respiratory: Reports: No symptoms Cardiac: Reports: No symptoms GI: Reports: No symptoms : Reports: No symptoms Musculoskeletal: Reports: Muscle pain, Neck pain Skin: Reports: No symptoms Neurological: Reports: No symptoms Endocrine: Reports: No symptoms Hematologic/Lymphatic: Reports: No symptoms All Other Systems: Reviewed and Negative Past Medical History - Past Medical History Previously Healthy: Yes Endocrine: Reports: None Cardiovascular: Reports: None Respiratory: Reports: Asthma Hematological: Reports: None Gastrointestinal: Reports: GERD Genitourinary: Reports: Other (PCOS) Neuro/Psych: Reports: Anxiety, Depression Musculoskeletal: Reports: None Cancer: Reports: None Last Menstrual Period: UNKNOWN, HAS PCOS - Surgical History General Surgical History: Reports: Tonsillectomy - Family History Family History: Reports: Unknown - Social History Smoking Status: Current every day smoker, Heavy tobacco smoker Hx Substance Use: No Alcohol Screening: Occasionally - Immunizations Tetanus Shot up to Date: Yes Physical Exam - Physical Exam Appearance: Well-appearing, No pain distress, Well-nourished Pain Distress: Mild Eyes: YAYO, EOMI, Conjunctiva clear ENT: Ears normal, Nose normal, Oropharynx normal Neck: Supple Respiratory: Airway patent Cardiovascular: RRR, Pulses normal, No rub, No murmur GI/: Soft Musculoskeletal: Normal strength, No edema, No calf tenderness, Limited ROM Skin: Warm, Dry, Normal color Neurological: Sensation intact, Motor intact, Reflexes intact, Cranial nerves intact, Alert, Oriented Psychiatric: Affect appropriate, Mood appropriate Interpretation - Radiology Interpretation Radiology Interpretation By: Radiologist Radiology Results: Negative Exam Interpreted: CT Scan Critical Care Note - Critical Care Note Total Time (mins): 0 Course - Course Orders, Labs, Meds: Lab Review 12/26/18 23:55 Serum , Qual Negative Orders Category Date Time Status C collar [ED IMMOBILIZATION] .ONCE EMERGENCY 12/26/18 23:51 Active SERUM Stat LAB 12/26/18 23:[address] CERVICAL SPINE W/O CONTRAST Stat RADS 12/27/18 00:[address] HEAD W/O CONTRAST Stat RADS 12/27/18 00:05 Completed Vital Signs: Temp Pulse Resp BP Pulse Ox 12/26/18 23:36 99.4 F 106 H 20 152/82 H 96 Departure - Departure Time of Disposition: 01:03 Disposition: HOME SELF-CARE Discharge Problem: Injury of neck Instructions: Cervical Strain (ED) Condition: Good Pt referred to PMD for follow-up: Yes IPMP verified?: No Allergies/Adverse Reactions: Allergies sulfamethoxazole [From Bactrim] Adverse Reaction (Verified 12/26/18 23:44) Nausea trimethoprim [From Bactrim] Adverse Reaction (Verified 12/26/18 23:44) Nausea Home Medications: Ambulatory Orders Cetirizine HCl [Zyrtec] 10 mg PO DAILY PRN 04/23/18 Albuterol Sulfate [Albuterol Sulfate Hfa] 2 puff INH QID 12/26/18 Ibuprofen 800 mg PO Q8H PRN 12/26/18 Disposition Discussed With: Patient, Family
--- NOTE | 2018-12-27 01:03 | CT ---
EXAM: CT cervical spine without contrast. HISTORY: Neck injury. PROCEDURE: Contiguous axial CT images of the cervical spine without contrast with coronal and sagitt al reformats. FINDINGS: There is normal alignment of the cervical vertebral bodies and facets. The vertebral bod y heights and intervertebral disc spaces are maintained. No evidence of fracture. There are posteri or osteophytes at multiple levels of the cervical spine. The C1-2 relationship is maintained. No pr evertebral soft tissue abnormality. Impression: No evidence of fracture. Normal alignment of the cervical spine with degenerative changes as described.
[2018-12-27] MEDS ORDERED: NORCO 7.5-325 PO STA (01:04)
== END 2018-12-27 01:45 | disposition home or self-care (01) ==
LOC: ED 23:36
DX: M54.2 Cervicalgia (principal); G89.11 Acute pain due to trauma; F17.210 Nicotine dependence, cigarettes, uncomplicated
CPT/HCPCS: 36415; 84703; 99282